=== PATIENT | male | born 1985 | race Caucasian/White ===

== ENCOUNTER 2021-03-06 11:19 | Outpatient (CLI) | payer OTHER, SELFPAY ==
--- NOTE | ~2021-03-06 | XR_ITS ---
EXAMINATION: XR abdomen/kub 1V INDICATION: Left ureteral stone TECHNIQUE: Supine views of the abdomen were obtained on 2 radiographs. COMPARISON: CT, 05/13/2016 FINDINGS: No definite urolithiasis is identified. Phleboliths of the right pelvis are noted. The jewell l gas pattern is normal. A moderate volume of colonic stool is present. IMPRESSION: 1. No urolithiasis identified. Reviewed, dictated and finalized at location A. [employer]
== END 2021-03-06 11:20 | disposition home or self-care (01) ==
PROVIDERS: PCP Internal Medicine; Visit Provider Urology
DX: N20.1 Calculus of ureter (principal)
CPT/HCPCS: 74018